=== PATIENT | male | born 1955 | race Caucasian/White ===

== ENCOUNTER 2016-10-05 08:34 | Day surgery (SDC) | payer BC ==
--- NOTE | ~2016-10-05 | EGD ---
EGD REPORT [facility] [address] [address] NAME: AMRIK PA : [birth year] STATUS : REG [facility]#: [id number] AGE: 61 ADM/REG DATE : 10/05/16 MR#: [id number] REPORT SERV DATE: 10/05/16 DICTATED BY: DATE: REPORT STATUS : Draft TRANSCRIBED BY: [employer] DATE: 10/05/16 [facility] Patient Name: Amrik Pa Date of : 1955 Attending MD: SAMMY LOPEZ MD Procedure Date No Time: 10/05/2016 Procedure: Colonoscopy Indications: Screening for colorectal malignant neoplasm Referring MD: Dyllan CLARK Medicines: Monitored Anesthesia Care Complications: No immediate complications. Procedure: Pre-Anesthesia Assessment: - ASA Grade Assessment: IV - A patient with severe systemic disease that is a constant threat to life. After I obtained informed consent, the scope was passed under direct vision. Throughout the procedure, the patient's blood pressure, pulse, and oxygen saturations were monitored continuously. The PCF [id number] was introduced through the anus and advanced to the cecum, identified by appendiceal orifice and ileocecal valve. The colonoscopy was performed without difficulty. The patient tolerated the procedure well. The quality of the bowel preparation was excellent. Findings: The perianal exam was abnormal. Findings include hemorrhoids. Multiple angioectasias without bleeding were found in the descending colon, in the transverse colon, in the ascending colon and in the cecum. Two sessile polyps were found in the ascending colon. The polyps were small in size. These polyps were removed with a cold snare. Resection and retrieval were complete. A sessile polyp was found in the transverse colon. The polyp was small in size. The polyp was removed with a cold snare. Resection and retrieval were complete. A sessile polyp was found at the splenic flexure. The polyp was diminutive in size. The polyp was removed with a cold biopsy forceps. Resection and retrieval were complete. A sessile polyp was found in the sigmoid colon. The polyp was small in size. The polyp was removed with a cold snare. Resection and retrieval were complete. No other significant abnormalities were identified in a careful examination of the remainder of the colon. There is no endoscopic evidence of diverticula, inflammation, mass or ulcerations in the entire colon. Internal hemorrhoids were found during retroflexion and were Grade I EGD REPORT [address] [address] NAME: AMRIK PA : [birth year] STATUS : REG [facility] PAT#: [id number] AGE: 61 ADM/REG DATE : 10/05/16 MR#: [id number] REPORT SERV DATE: 10/05/16 DICTATED BY: DATE: REPORT STATUS : Draft TRANSCRIBED BY: [employer] DATE: 10/05/16 (internal hemorrhoids that do not prolapse). No additional abnormalities were found on retroflexion. Impression: - Hemorrhoids found on perianal exam. - Multiple non-bleeding colonic angioectasias. - Two small polyps in the ascending colon. Resected and retrieved. - One small polyp in the transverse colon. Resected and retrieved. - One diminutive polyp at the splenic flexure. Resected and retrieved. - One small polyp in the sigmoid colon. Resected and retrieved. - Internal hemorrhoids. Recommendation: - Patient has a contact number available for emergencies. The signs and symptoms of potential delayed complications were discussed with the patient. Return to normal activities tomorrow. Written discharge instructions were provided to the patient. - Regular diet. - Discharge patient to home. - Continue present medications. - Await pathology results. - Repeat colonoscopy in 3 years for surveillance based on pathology results. Procedure Code(s): --- Professional --- 50229, Colonoscopy, flexible, proximal to splenic flexure; with removal of tumor(s), polyp(s), or other lesion(s) by snare technique 51183, 59, Colonoscopy, flexible, proximal to splenic flexure; with biopsy, single or multiple Diagnosis Code(s): --- Professional --- K64.0, First degree hemorrhoids K55.20, Angiodysplasia of colon without hemorrhage D12.5, Benign neoplasm of sigmoid colon D12.3, Benign neoplasm of transverse colon D12.2, Benign neoplasm of ascending colon Z12.11, Encounter for screening for malignant neoplasm of colon CPT copyright 2013 [employer]. All rights reserved. The codes documented in this report are preliminary and upon learning and development director review may EGD REPORT [facility] [address] [address] NAME: AMRIK PA : [birth year] STATUS : REG [facility] PAT#: [id number] AGE: 61 ADM/REG DATE : 10/05/16 MR#: [id number] REPORT SERV DATE: 10/05/16 DICTATED BY: DATE: REPORT STATUS : Draft TRANSCRIBED BY: [email or web address] DATE: 10/05/16 be revised to meet current compliance requirements. SAMMY LOPEZ MD 10/05/2016 10:24 AM This report has been signed electronically. Number of Addenda: 0 Note Initiated On: 10/05/2016 9:18 AM Scope Withdrawal Time 0 hours 14 minutes 32 seconds [address] [id number]
[~2016-10-05 08:34] MED LIST: ASTEPRO0.15 % NAS; CALCIUM PO; CONSTULOSE; COR20 PO; FLONASE NAS; L40 PO; PROBIOTIC PO; SPIR100 PO; STOOL SOFTEN240 MG PO
== END 2016-10-05 23:59 | disposition home or self-care (01) ==
LOC: DMU 08:34
PROVIDERS: Internal Medicine Gastroenterology
PROC: 0DBM8ZX Excision of Descending Colon, Via Natural or Artificial Opening Endoscopic, Diagnostic (ICD-10-PCS; 2016-10-05)
PROC: 0DBL8ZX Excision of Transverse Colon, Via Natural or Artificial Opening Endoscopic, Diagnostic (ICD-10-PCS; 2016-10-05)
PROC: 0DBK8ZX Excision of Ascending Colon, Via Natural or Artificial Opening Endoscopic, Diagnostic (ICD-10-PCS; principal; 2016-10-05 11:00)
PROC: 0DBN8ZX Excision of Sigmoid Colon, Via Natural or Artificial Opening Endoscopic, Diagnostic (ICD-10-PCS; 2016-10-05 11:00)
DX: Z12.11 Encounter for screening for malignant neoplasm of colon (principal); D12.3 Benign neoplasm of transverse colon; D12.2 Benign neoplasm of ascending colon; K63.5 Polyp of colon; K64.0 First degree hemorrhoids; K55.20 Angiodysplasia of colon without hemorrhage; K76.6 Portal hypertension; K21.9 Gastro-esophageal reflux disease without esophagitis; K76.81 Hepatopulmonary syndrome; Z88.0 Allergy status to penicillin; Z86.19 Personal history of other infectious and parasitic diseases; Z90.89 Acquired absence of other organs; Z98.890 Other specified postprocedural states
CPT/HCPCS: 71010; 88305; 88341; 88342